=== PATIENT | male | born 1970 | race Caucasian/White ===

== ENCOUNTER 2016-12-29 11:24 | Emergency (ER) | payer SELFPAY ==
[2016-12-29] MEDS ORDERED: KETOROLAC TROMETHAMINE INJ/PF 30 MG/1 ML SDV IV ONE (12:11)
[2016-12-29] MEDS ORDERED: NORMAL SALINE 1000 ML 1,000 ML IV ONE (12:11)
[2016-12-29] MEDS ORDERED: ONDANSETRON HCL INJ/PF 4 MG/2 ML SDV IV ONE (12:11)
--- NOTE | 2016-12-29 12:14 | ER Document Report ---
ED Medical Screen (RME) - General Chief Complaint: Nausea/Vomiting Stated Complaint: VOMITING Time Seen by Provider: 12/29/16 12:10 Mode of Arrival: Ambulatory Information source: Patient - pt with onset of abd pain earlier this week -- che been having N/V/D in the past feew days -- laura BERUMEN and was sent here for further evaluation TRAVEL OUTSIDE OF THE [place] IN LAST 30 DAYS: No - Related Data Allergies/Adverse Reactions: almond Allergy (Verified 12/29/16 12:02) cashew nut Allergy (Verified 12/29/16 12:02) Home Medications: Current Home Medications No Home Medications 12/29/16 [History] Past Medical History - Social History Chew tobacco use (# tins/day): No Frequency of alcohol use: Heavy Drug Abuse: None Renal/ Medical History: Denies: Hx Peritoneal Dialysis - Immunizations Hx Diphtheria, Pertussis, Tetanus Vaccination: No Physical Exam - Vital signs Vitals: Temp Pulse Resp BP Pulse Ox 97.9 F 126 H 20 112/78 100 12/29/16 11:42 12/29/16 11:42 12/29/16 11:42 12/29/16 11:42 12/29/16 11:42 Course - Vital Signs Vital signs: Temp Pulse Resp BP Pulse Ox 97.9 F 126 H 20 112/78 100 12/29/16 11:42 12/29/16 11:42 12/29/16 11:42 12/29/16 11:42 12/29/16 11:42
[2016-12-29 12:35] LABS: ABSOLUTE LYMPHOCYTES (AUTO) 1.2 10^3/uL (0.5-4.7); ABSOLUTE MONOCYTES (AUTO) 0.8 10^3/uL (0.1-1.4); ABSOLUTE NEUT (AUTO) 8.4 10^3/uL (1.7-8.2); BASOPHILS % (AUTO) 0.4 % (0-2); EOSINOPHILS % (AUTO) 0.3 % (0-6); HEMATOCRIT 52.3 % (37.9-51.0); HEMOGLOBIN 18.6 g/dL (13.5-17.0); HGB HCT DIFFERENCE 3.5; LYMPHOCYTES % (AUTO) 11.4 % (13-45); MEAN CORPUSCULAR HEMOGLOBIN 32.2 pg (27.0-33.4); MEAN CORPUSCULAR HGB CONC 35.5 g/dL (32.0-36.0); MEAN CORPUSCULAR VOLUME 91 fl (80-97); MONOCYTES % (AUTO) 7.9 % (3-13); RED BLOOD COUNT 5.76 10^6/uL (4.35-5.55); RED CELL DISTRIBUTION WIDTH 12.5 % (11.5-14.0); WHITE BLOOD COUNT 10.5 10^3/uL (4.0-10.5)
[2016-12-29 12:40] LABS: APPEARANCE,URINE CLEAR; BILIRUBIN,URINE NEGATIVE (NEGATIVE); GLUCOSE, URINE NEGATIVE (NEGATIVE); KETONES,URINE NEGATIVE (NEGATIVE); LEUKOCYTE ESTERASE,URINE NEGATIVE (NEGATIVE); NITRITE,URINE NEGATIVE (NEGATIVE); PROTEIN,URINE 100 mg/dL (NEGATIVE); URINE SPECIFIC GRAVITY 1.034; UROBILINOGEN,URINE NEGATIVE mg/dL (<2.0)
[2016-12-29 13:07] LABS: ALBUMIN 5.2 g/dL (3.5-5.0); ANION GAP 19 (5-19); CARBON DIOXIDE 26 mmol/L (22-30); CHLORIDE 93 mmol/L (98-107); CREATININE RESULT 0.81 mg/dL (0.52-1.25); GLUCOSE 118 mg/dL (75-110); POTASSIUM 3.8 mmol/L (3.6-5.0); SODIUM 138.2 mmol/L (137-145); TOTAL PROTEIN 8.5 g/dL (6.3-8.2)
[2016-12-29 13:08] LABS: ALANINE AMINOTRANSFERASE 40 U/L (21-72); ALKALINE PHOSPHATASE 59 U/L (38-126); ASPARTATE AMINO TRANSFERASE 46 U/L (17-59); BILIRUBIN,DIRECT 0.4 mg/dL (0.0-0.4); BILIRUBIN,TOTAL 0.4 mg/dL (0.2-1.3); BLOOD UREA NITROGEN 29 mg/dL (7-20); CALCIUM 10.4 mg/dL (8.4-10.2); LIPASE 37.4 U/L (23-300)
--- NOTE | 2016-12-29 13:24 | RADIOLOGY REPORT (SQ) ---
EXAM DESCRIPTION: ACUTE ABDOMEN SERIES COMPLETED DATE/TIME: 12/29/2016 12:50 pm REASON FOR STUDY: abd pain COMPARISON: None. NUMBER OF VIEWS: Three views. TECHNIQUE: Frontal chest, supine abdomen and upright/decubitus abdomen radiographic images acquired. LIMITATIONS: None. FINDINGS: CHEST: Lungs clear of infiltrates. FREE AIR: None. No abnormal gas collections. BOWEL GAS PATTERN: Nonobstructive pattern. No dilated loops or air fluid levels. CALCIFICATIONS: No suspicious calcifications. HARDWARE: None in the abdomen. SOFT TISSUES: No gross mass or suggestion of organomegaly. BONES: No acute fracture. No worrisome bone lesions. OTHER: No other significant finding. IMPRESSION: NO RADIOGRAPHIC EVIDENCE FOR ACUTE ABDOMINAL DISEASE. TECHNICAL DOCUMENTATION: JOB ID: [id number] [employer]- All Rights Reserved
--- NOTE | 2016-12-29 14:35 | ER Document Report ---
ED General - General Chief Complaint: Nausea/Vomiting Stated Complaint: VOMITING Time Seen by Provider: 12/29/16 12:10 Mode of Arrival: Ambulatory Information source: Patient Notes: 46-year-old male presents with complaints of nausea vomiting diarrhea over the past 3 days. Patient denies any fevers or chills denies eating anything out of the ordinary, he admits to multiple episodes of vomiting today. He notes initially symptoms seem to be getting better but worsened over the last day Patient admits to generalized abdominal cramping no specific point tenderness TRAVEL OUTSIDE OF THE [place] IN LAST 30 DAYS: No - HPI Onset: Last week Onset/Duration: Sudden Quality of pain: Cramping Severity: Mild Pain Level: 1 Associated symptoms: Diarrhea, Nausea, Vomiting Exacerbated by: Denies Relieved by: Denies Similar symptoms previously: No Recently seen / treated by doctor: No - Related Data Allergies/Adverse Reactions: almond Allergy (Verified 12/29/16 12:02) cashew nut Allergy (Verified 12/29/16 12:02) Past Medical History - General Information source: Patient - pt with onset of abd pain earlier this week -- che been having N/V/D in the past feew days -- laura BERUMEN and was sent here for further evaluation - Social History Smoking Status: Current Every Day Smoker Cigarette use (# per day): Yes Chew tobacco use (# tins/day): No Smoking Education Provided: No Frequency of alcohol use: Heavy Drug Abuse: None Family History: Reviewed & Not Pertinent Patient has suicidal ideation: No Patient has homicidal ideation: No Renal/ Medical History: Denies: Hx Peritoneal Dialysis - Immunizations Hx Diphtheria, Pertussis, Tetanus Vaccination: No Review of Systems - Review of Systems Notes: REVIEW OF SYSTEMS: CONSTITUTIONAL : Denies fever, chills, or sweats. Denies recent illness. EENT: Denies eye, ear, throat, or mouth pain or symptoms. Denies nasal or sinus congestion or discharge. Denies throat, tongue, or mouth swelling or difficulty swallowing. CARDIOVASCULAR: Denies chest pain. Denies palpitations or racing or irregular heart beat. Denies ankle edema. RESPIRATORY: Denies cough, cold, or chest congestion. Denies shortness of breath, difficulty breathing, or wheezing. GASTROINTESTINAL: admits to nausea vomiting diarrhea GENITOURINARY: Denies difficulty urinating, painful urination, burning, frequency, blood in urine, or discharge. MUSCULOSKELETAL: Denies back or neck pain or stiffness. Denies joint pain or swelling. SKIN: Denies rash, lesions or sores. HEMATOLOGIC : Denies easy bruising or bleeding. LYMPHATIC: Denies swollen, enlarged glands. NEUROLOGICAL: Denies confusion or altered mental status. Denies passing out or loss of consciousness. Denies dizziness or lightheadedness. Denies headache. Denies weakness or paralysis or loss of use of either side. Denies problems with gait or speech. Denies sensory loss, numbness, or tingling. Denies seizures. PSYCHIATRIC: Denies anxiety or stress. Denies depression, suicidal ideation, or homicidal ideation. ALL OTHER SYSTEMS REVIEWED AND NEGATIVE. Dictation was performed using [employer] voice recognition software PHYSICAL EXAMINATION: GENERAL: Well-appearing, well-nourished and in no acute distress. HEAD: Atraumatic, normocephalic. EYES: Pupils equal round and reactive to light, extraocular movements intact, sclera anicteric, conjunctiva are normal. ENT: Nares patent, oropharynx clear without exudates. Moist mucous membranes. NECK: Normal range of motion, supple without lymphadenopathy LUNGS: Breath sounds clear to auscultation bilaterally and equal. No wheezes rales or rhonchi. HEART: Tachycardic ABDOMEN: Soft, nontender, nondistended abdomen. No guarding, no rebound. No masses appreciated. Musculoskeletal: Normal range of motion, no pitting or edema. No cyanosis. NEUROLOGICAL: Cranial nerves grossly intact. Normal speech, normal gait. Normal sensory, motor exams PSYCH: Normal mood, normal affect. SKIN: Warm, Dry, normal turgor, no rashes or lesions noted. Physical Exam - Vital signs Vitals: Temp Pulse Resp BP Pulse Ox 97.9 F 126 H 20 112/78 100 12/29/16 11:42 12/29/16 11:42 12/29/16 11:42 12/29/16 11:42 12/29/16 11:42 Course - Re-evaluation Re-evalutation: 12/29/16 14:35 pt noted to be tachycardic on arrival overall he looks quite well is in no distress at this time. Patient will be given IV fluids lab work is pending at this 12/29/16 15:14 Patient notes significant improvement of symptoms, lab work noted no significant abnormality except for elevated hemoglobin which would be consistent with his smoking. Smoking cessation instructions provided to the patient, I believe he has a viral syndrome given that lab work is normal otherwise. He will be discharged home at this time with close return precautions After performing a Medical Screening Examination, I estimate there is LOW risk for ACUTE APPENDICITIS, BOWEL OBSTRUCTION, ACUTE CHOLECYSTITIS, PERFORATED DIVERTICULITIS, INCARCERATED HERNIA, PANCREATITIS, or PERFORATED ULCER, thus I consider the discharge disposition reasonable. Also, there is no evidence or peritonitis, sepsis, or toxicity. I have reevaluated this patient multiple times and no significant life threatening changes are noted. The patient and I have discussed the diagnosis and risks, and we agree with discharging home with close follow-up with the understanding that symptoms and presentations can change. We also discussed returning to the Emergency Department immediately if new or worsening symptoms occur. We have discussed the symptoms which are most concerning (e.g., bloody stool, fever, changing or worsening pain, intractable vomiting - standard verbal up date) that necessitate immediate return. - Vital Signs Vital signs: Temp Pulse Resp BP Pulse Ox 97.9 F 126 H 20 112/78 100 12/29/16 11:42 12/29/16 11:42 12/29/16 11:42 12/29/16 11:42 12/29/16 11:42 - Laboratory Result Diagrams: 12/29/16 12:26 12/29/16 12:26 Laboratory results interpreted by me: 12/29/16 12/29/16 12/29/16 12:15 12:26 12:26 RBC 5.76 H Hgb 18.6 H Hct 52.3 H Seg Neutrophils % 80.0 H Lymphocytes % 11.4 L Absolute Neutrophils 8.4 H Chloride 93 L BUN 29 H Glucose 118 H Calcium 10.4 H Total Protein 8.5 H Albumin 5.2 H Urine Protein 100 H Discharge - Discharge Clinical Impression: Tachycardia, Nausea vomiting and diarrhea Abdominal pain Qualifiers: Abdominal location: generalized Qualified Code(s): R10.84 - Generalized abdominal pain Condition: Stable Disposition: HOME, SELF-CARE Instructions: Abdominal Pain ([facility]), Vomiting ([facility]), Diarrhea, Nonspecific ([facility]) Additional Instructions: Follow up with your physician tomorrow for further care or return to the ED IMMEDIATELY if symptoms worsen or new concerns occur. If you cannot afford to follow up with your primary care physician a list of low cost clinics have been provided at the end of your discharge papers as well. Prescriptions: Dicyclomine HCl [Bentyl 20 mg Tablet] 20 mg PO QID #40 tablet Metoclopramide HCl [Reglan 10 mg Tablet] 1 - 2 tab PO Q6 #25 tablet
[2016-12-29 15:34] VITALS: BP 119/75
== END 2016-12-29 15:34 | disposition home or self-care (01) ==
LOC: ER 11:24
DX: R11.2 Nausea with vomiting, unspecified (principal); R19.7 Diarrhea, unspecified; R00.0 Tachycardia, unspecified; R10.84 Generalized abdominal pain; F17.210 Nicotine dependence, cigarettes, uncomplicated; Z91.018 Allergy to other foods
CPT/HCPCS: 99284; 96361; 96374; 96375; 36415; 83690; 85025; 80053; 81001; 74022; J1885; J2405; J7030

== ENCOUNTER → 2018-11-27 | Outpatient (CLI) | payer BC ==
[2018-11-27 11:55] LABS: ABSOLUTE BASOPHILS # (AUTO) 0.1 10^3/uL (0.0-0.2); ABSOLUTE EOSINOPHILS # (AUTO) 0.6 10^3/uL (0.0-0.6); ABSOLUTE LYMPHOCYTES (AUTO) 2.6 10^3/uL (0.5-4.7); ABSOLUTE MONOCYTES (AUTO) 1.1 10^3/uL (0.1-1.4); ABSOLUTE NEUT (AUTO) 5.9 10^3/uL (1.7-8.2); BASOPHILS % (AUTO) 1.3 % (0-2); EOSINOPHILS % (AUTO) 5.6 % (0-6); HEMATOCRIT 41.3 % (37.9-51.0); HEMOGLOBIN 14.4 g/dL (13.5-17.0); LYMPHOCYTES % (AUTO) 25.3 % (13-45); MEAN CORPUSCULAR HEMOGLOBIN 31.2 pg (27.0-33.4); MEAN CORPUSCULAR HGB CONC 34.8 g/dL (32.0-36.0); MEAN CORPUSCULAR VOLUME 90 fl (80-97); MONOCYTES % (AUTO) 10.6 % (3-13); PLATELET COUNT 484 10^3/uL (150-450); RED BLOOD COUNT 4.61 10^6/uL (4.35-5.55); RED CELL DISTRIBUTION WIDTH 12.7 % (11.5-14.0); SEGMENTED NEUTROPHILS % (AUTO) 57.2 % (42-78); TOTAL CELLS COUNTED % (AUTO) 100 %; WHITE BLOOD COUNT 10.3 10^3/uL (4.0-10.5)
[2018-11-27 12:13] LABS: ALBUMIN 4.6 g/dL (3.5-5.0); ALKALINE PHOSPHATASE 132 U/L (38-126); ANION GAP 11 (5-19); ASPARTATE AMINO TRANSFERASE 35 U/L (17-59); BILIRUBIN,DIRECT 0.2 mg/dL (0.0-0.4); BILIRUBIN,TOTAL 0.3 mg/dL (0.2-1.3); BLOOD UREA NITROGEN 16 mg/dL (7-20); CALCIUM 10.2 mg/dL (8.4-10.2); CARBON DIOXIDE 30 mmol/L (22-30); CHLORIDE 96 mmol/L (98-107); GLUCOSE 90 mg/dL (75-110); TOTAL PROTEIN 7.4 g/dL (6.3-8.2)
[2018-11-27 12:40] LABS: CARCINOEMBRYONIC ANTIGEN 58.5 ng/mL (<3.0)
== END ==
LOC: OD 11:19
PROVIDERS: ATTEND Surgery
DX: C20 Malignant neoplasm of rectum (principal)
CPT/HCPCS: 36415; 80053; 82378; 85025

== ENCOUNTER → 2018-11-28 | Outpatient (CLI) | payer BC ==
--- NOTE | 2018-11-28 15:27 | RADIOLOGY REPORT (SQ) ---
EXAM DESCRIPTION: CHEST PA/LATERAL COMPLETED DATE/TIME: 11/28/2018 3:04 pm REASON FOR STUDY: MALIGNANT NEOPLASM OF RECTUM COMPARISON: None. EXAM PARAMETERS: NUMBER OF VIEWS: two views TECHNIQUE: Digital Frontal and Lateral radiographic views of the chest acquired. RADIATION DOSE: NA LIMITATIONS: none FINDINGS: LUNGS AND PLEURA: Multiple pulmonary nodules in the lower lobes. MEDIASTINUM AND HILAR STRUCTURES: No masses or contour abnormalities. HEART AND VASCULAR STRUCTURES: Heart normal size. No evidence for failure. BONES: No acute findings. HARDWARE: None in the chest. OTHER: No other significant finding. IMPRESSION: Multiple lower lobe pulmonary nodules likely metastases TECHNICAL DOCUMENTATION: JOB ID: [id number] [employer]- All Rights Reserved Reading location - IP/workstation name: [email or web address]
== END ==
LOC: OD 14:56
PROVIDERS: ATTEND Physician Assistant Surgical
DX: C20 Malignant neoplasm of rectum (principal); R91.8 Other nonspecific abnormal finding of lung field
CPT/HCPCS: 71046

== ENCOUNTER → 2018-11-29 | Outpatient (CLI) | payer BC ==
--- NOTE | 2018-11-29 16:48 | RADIOLOGY REPORT (SQ) ---
EXAM DESCRIPTION: CT ABD/PELVIS WITH IV ORAL COMPLETED DATE/TIME: 11/29/2018 3:17 pm REASON FOR STUDY: C20 MALIGNANT NEOPLASM OF RECTUM C20 MALIGNANT NEOPLASM OF RECTUM COMPARISON: None. TECHNIQUE: CT scan of the abdomen and pelvis performed using helical scanning technique with dynamic intravenous contrast injection. No oral contrast. Images reviewed with lung, soft tissue, and bone windows. Reconstructed coronal and sagittal MPR images reviewed. Delayed images for evaluation of the urinary system also acquired. All images stored on PACS. All CT scanners at this facility use dose modulation, iterative reconstruction, and/or weight based d osing when appropriate to reduce radiation dose to as low as reasonably achievable (ALARA). [facility]: Dose Right [facility]: CareDose [facility]: Dose Right [facility]: Teradose 4D [facility]: [employer] CONTRAST TYPE AND DOSE: contrast/concentration: Isovue 350.00 mg/ml; Total Contrast Delivered: 77.0 ml; Total Saline Delivered: 67.0 ml RENAL FUNCTION: None required. The patient is less than 50 years old. RADIATION DOSE: CT Rad equipment meets quality standard of care and radiation dose reduction techniq ues were employed. CTDIvol: 3.2 - 3.7 mGy. DLP: 347 mGy-cm.. LIMITATIONS: None. FINDINGS: LOWER CHEST: Multiple pulmonary nodules. LIVER: Normal size. Multiple ill-defined hepatic masses, the largest in the posterior right lobe willy suring 4.5 cm and the largest in the lateral left lobe measuring 3.5 cm. No dilated ducts. SPLEEN: Normal size. No focal lesions. PANCREAS: No masses. No significant calcifications. No adjacent inflammation or peripancreatic fluid collections. Pancreatic duct not dilated. GALLBLADDER: No identified stones by CT criteria. No inflammatory changes to suggest cholecystitis. ADRENAL GLANDS: No significant masses or asymmetry. RIGHT KIDNEY AND URETER: No solid masses. No significant calcifications. No hydronephrosis or hyd roureter. LEFT KIDNEY AND URETER: No solid masses. No significant calcifications. No hydronephrosis or hydr oureter. AORTA AND VESSELS: No aneurysm. No dissection. Renal arteries, SMA, celiac without stenosis. RETROPERITONEUM: No retroperitoneal adenopathy, hemorrhage or masses. BOWEL AND PERITONEAL CAVITY: No masses or inflammatory changes. No free fluid or peritoneal masses. APPENDIX: Normal. PELVIS: No mass. No free fluid. Normal bladder. ABDOMINAL WALL: No masses. No hernias. BONES: No significant or acute findings. OTHER: No other significant finding. IMPRESSION: 1. MULTIPLE PULMONARY NODULES CONSISTENT WITH METASTATIC INVOLVEMENT. 2. MULTIPLE ILL-DEFINED HEPATIC MASSES CONSISTENT WITH HEPATIC METASTASES. 3. NO OTHER SIGNIFICANT OR ACUTE FINDING IN THE ABDOMEN OR PELVIS ON CT SCAN WITH IV CONTRAST. TECHNICAL DOCUMENTATION: JOB ID: [id number] Quality ID # [id number]: Final reports with documentation of one or more dose reduction techniques (e.g., Au tomated exposure control, adjustment of the mA and/or kV according to patient size, use of iterative reconstruction technique) 2010 [employer] All Rights Reserved Reading location - IP/workstation name: [email or web address]
== END ==
LOC: RAD 15:00
PROVIDERS: ATTEND Surgery
DX: C20 Malignant neoplasm of rectum (principal)
CPT/HCPCS: 74177

== ENCOUNTER 2018-12-18 08:39 | Day surgery (SDC) | payer BC ==
[~2018-12-18 08:39] MED LIST: BUPIVACAINE HCL 0.25% /EPINEPHRINE INJ/PF 30 ML SDV ONE; CEFAZOLIN 1 GM/D5W RTU 1 GM/50 ML RTUPB IV ONE
[2018-12-18] MEDS ORDERED: ALBUTEROL SULFATE 0.083% NEB 2.5 MG/3 ML AMPUL NEB ONE (09:52)
[2018-12-18] MEDS ORDERED: KETAMINE HCL INJ 500 MG/10 ML VIAL ONE (10:29)
[2018-12-18] MEDS ORDERED: FENTANYL CITRATE INJ/PF 100 MCG/2 ML AMPUL ONE (10:29)
[2018-12-18] MEDS ORDERED: PROPOFOL INJ 200 MG/20 ML VIAL IV ONE (10:30)
[2018-12-18] MEDS ORDERED: MIDAZOLAM 2 MG/2 ML INJ ONE ×2 (10:30→14:43)
[2018-12-18 11:00] LABS: HEMATOCRIT 39.5 % (37.9-51.0); HEMOGLOBIN 13.3 g/dL (13.5-17.0); MEAN CORPUSCULAR HGB CONC 33.6 g/dL (32.0-36.0); MEAN CORPUSCULAR VOLUME 89 fl (80-97); PLATELET COUNT 395 10^3/uL (150-450); RED BLOOD COUNT 4.42 10^6/uL (4.35-5.55); RED CELL DISTRIBUTION WIDTH 12.5 % (11.5-14.0); WHITE BLOOD COUNT 7.7 10^3/uL (4.0-10.5)
--- NOTE | 2018-12-18 11:56 | Discharge Summary ---
Discharge Summary (SDC) - Discharge Final Diagnosis: rectal cancer Date of Surgery: 12/18/18 Discharge Date: 12/18/18 Condition: Good Treatment or Instructions: keep port site dry, ok to shower, pat incision dry. leave steristrips in place. Referrals: LILIANA COOLEY MD [Primary Care Provider] - Discharge Diet: As Tolerated Report the Following to Your Physician Immediately: Shortness of Breath - pt needs a f/u with me in 7-10 days., Increase in Pain
[2018-12-18] MEDS ORDERED: OXYCODONE-ACETAMINOPHEN 5-325 MG TABLET PO PRN (12:00)
--- NOTE | 2018-12-18 12:01 | Operative Report ---
Nonrecallable Operative Report DATE OF SURGERY: 12/18/18 PREOPERATIVE DIAGNOSIS: rectal cancer POSTOPERATIVE DIAGNOSIS: rectal cancer OPERATION: portacath placement left chest SURGEON: AMA SILVA ANESTHESIA: Moderate Sedation COMPLICATIONS: none ESTIMATED BLOOD LOSS: 5cc INTRAOPERATIVE FINDINGS: see procedure note PROCEDURE: Patient was brought to the operating room awake alert stable condition placed the operative table supine position and given IV sedation for the procedure. After appropriate timeout and site verification the area of underneath the left clavicle was anesthetized with 1% lidocaine with epinephrine. Using a 16-gauge needle the left subclavian vein was accessed. A J-wire was placed through the needle confirmed with fluoroscopy in the superior vena cava and the needle was removed. Over the needle a tear-away introducer dilator was placed under fluoroscopic visualization. The dilator was then removed. The Port-A-Cath catheter was then placed into the tear-away introducer and positioned in the superior vena cava using fluoroscopy. After the catheter was in satisfactory position attention was turned to the left chest wall. Skin over the left chest wall at the fourth intercostal space was anesthetized with 1% lidocaine with epinephrine. A transverse incision was made with a 15 blade dissection was carried down through subcutaneous tissue with Bovie cautery. A subcutaneous pocket was then fashioned with Bovie cautery inferior to the incision. Using the tunnel maker supplied with the kit it was attached to the catheter at the subclavian stick site and tunneled underneath the skin to the port site incision. It was then attached to the power port. It was then placed underneath the skin in the subcutaneous pocket. It then flushed and withdrew easily and then was heparinized with a heparinized saline solution. Subcutaneous tissue was then reapproximated with interrupted 3-0 Vicryl suture. Skin was then closed with intracuticular 4-0 Monocryl. Steri-Strips applied to complete the procedure. Estimated blood loss was less than 5 cc sponge and needle counts were correct x2 the patient was transferred recovery in stable condition. No complications encountered.
--- NOTE | 2018-12-18 12:27 | RADIOLOGY REPORT (SQ) ---
EXAM DESCRIPTION: CHEST SINGLE VIEW COMPLETED DATE/TIME: 12/18/2018 12:15 pm REASON FOR STUDY: portacath placement. COMPARISON: Chest films 11/28/2018, 12/29/2016 EXAM PARAMETERS: NUMBER OF VIEWS: One view. TECHNIQUE: Single frontal radiographic view of the chest acquired. RADIATION DOSE: NA LIMITATIONS: None. FINDINGS: LUNGS AND PLEURA: Multiple small pulmonary nodules are present bilaterally unchanged from 11/28/2018. No acute infiltrates. No pleural effusion or pneumothorax. MEDIASTINUM AND HILAR STRUCTURES: No masses. Contour normal. HEART AND VASCULAR STRUCTURES: Heart normal in size. Normal vasculature. BONES: No acute findings. HARDWARE: Left-sided permanent central line tip superior vena cava. No pneumothorax OTHER: No other significant finding. IMPRESSION: Left-sided permanent central line tip superior vena cava. No pneumothorax. No acute infiltrates Multiple small pulmonary nodules from metastatic disease TECHNICAL DOCUMENTATION: JOB ID: [id number] [employer]- All Rights Reserved Reading location - IP/workstation name: [email or web address]
[2018-12-18 13:25] VITALS: BP 107/62
[2018-12-18] MEDS ORDERED: GLYCOPYRROLATE 1 MG/5 ML VIAL ONE (14:40)
--- NOTE | 2018-12-18 15:53 | RADIOLOGY REPORT (SQ) ---
EXAM DESCRIPTION: FLUORO/CV PLACEMENT COMPLETED DATE/TIME: 12/18/2018 2:41 pm REASON FOR STUDY: PORTACATH PLCMT LEFT SIDE ASST W/ FLUORO IN OR C20 MALIGNANT NEOPLASM OF RECTUM R 73.9 HYPERGLYCEMIA, UNSPECIFIED COMPARISON: None. FLUOROSCOPY TIME: 1.4 minutes Spot images saved to PACS. TECHNIQUE: Intra-operative images acquired during surgical procedure to evaluate progress. NUMBER OF IMAGES: 3 LIMITATIONS: None. FINDINGS: Fluoroscopy was provided for intraoperative procedure. Please refer to the operative repo rt for further discussion. IMPRESSION: IMAGE(S) OBTAINED DURING PROCEDURE. COMMENT: Quality ID [id number]: Final reports for procedures using fluoroscopy that document radiation exp osure indices, or exposure time and number of fluorographic images (if radiation exposure indices are not available) Please consult full operative report of the attending physician for description of the procedure. TECHNICAL DOCUMENTATION: JOB ID: [id number] [employer]- All Rights Reserved Reading location - IP/workstation name: [email or web address]
== END 2018-12-18 13:26 | disposition home or self-care (01) ==
LOC: OROUT 08:39
PROVIDERS: ATTEND Surgery
DX: C20 Malignant neoplasm of rectum (principal); R73.9 Hyperglycemia, unspecified; K62.5 Hemorrhage of anus and rectum; F17.210 Nicotine dependence, cigarettes, uncomplicated
CPT/HCPCS: 36561; 36415; 85027; 71045; 77001; C1788; J2250; J3490 ×3; J0690; J2704; J1642; J3010

== ENCOUNTER → 2019-03-20 | Outpatient (CLI) | payer BC ==
--- NOTE | 2019-03-20 12:44 | RADIOLOGY REPORT (SQ) ---
EXAM DESCRIPTION: CT CHEST WITH; CT ABD/PELVIS WITH IV ORAL COMPLETED DATE/TIME: 03/20/2019 10:36 am; 03/20/2019 10:37 am REASON FOR STUDY: MALIGNANT NEOPLASM OF RECTUM C20 MALIGNANT NEOPLASM OF RECTUM COMPARISON: CT abdomen pelvis 11/29/2018 CONTRAST TYPE AND DOSE: contrast/concentration: Isovue 350.00 mg/ml; Total Contrast Delivered: 72.0 ml; Total Saline Delivered: 66.0 ml RENAL FUNCTION: Creatinine 0.8 TECHNIQUE: CT scan of the chest performed using helical scanning technique with dynamic intravenous contrast injection. Images reviewed with lung, soft tissue and bone windows. Reconstructed coronal a nd sagittal MPR images reviewed. All images stored on PACS. CT scan of the abdomen and pelvis performed with intravenous and with oral contrastusing helical scan abbe technique with dynamic intravenous contrast injection. Images reviewed with lung, soft tissue a nd bone windows. Reconstructed coronal and sagittal MPR images reviewed. Delayed images for evaluat ion of the urinary system also acquired and evaluated. All images stored on PACS. All CT scanners at this facility use dose modulation, iterative reconstruction, and/or weight based d osing when appropriate to reduce radiation dose to as low as reasonably achievable (ALARA). [facility]: Dose Right [facility]: CareDose [facility]: Dose Right [facility]: Teradose 4D [facility]: [employer] RADIATION DOSE: CT Rad equipment meets quality standard of care and radiation dose reduction techniq ues were employed. CTDIvol: 4.5 - 4.7 mGy. DLP: 724 mGy-cm. . LIMITATIONS: None. FINDINGS: CHEST: LUNGS AND PLEURA: Multiple pulmonary nodules seen on 11/29/2018 has decreased in size. Index lesions are as follows: Cavitary 11 mm lingular nodule axial image 108/158 (was [address] abdomen pelvis imaging t hrough the lung bases) 6 mm nodule medial left lung base axial image 112/158 (was [address] abdomen pelvis) 7 mm nodule left posterior costophrenic sulcus axial image 128/158 (was [address] abdomen pelvis) There is 11 mm nodule at the confluence of the major and minor fissures on axial image 72/158. This was outside the field of view prior exam. No acute infiltrates. No pleural effusion. No pneumothorax. HILAR AND MEDIASTINAL STRUCTURES: No identified masses or abnormal nodes. HEART AND VASCULAR STRUCTURES: No aneurysm or dissection. No central pulmonary emboli. No pericardi al effusion. HARDWARE: Right-sided permanent central line tip superior vena cava THYROID AND OTHER SOFT TISSUES: No masses. No adenopathy. BONES: No significant finding. OTHER: No other significant finding. ABDOMEN AND PELVIS: LIVER: Decrease in size and number of malignant liver lesions compared to 11/29/2018. Index lesions a re as follows: Left lobe sub- diaphragmatic mass 3.4 x 3.3 cm (was 5 x 4.5 cm on 11/29/2018). Right lobe inferiorly 3.6 x 3.3 cm (was 5.8 x 5.7 cm on 11/29/2018). SPLEEN: Normal size. No focal lesions. PANCREAS: No masses. No significant calcifications. No adjacent inflammation or peripancreatic fluid collections. Pancreatic duct not dilated. GALLBLADDER: No identified stones by CT criteria. No inflammatory changes to suggest cholecystitis. ADRENAL GLANDS: No significant masses or asymmetry. RIGHT KIDNEY AND URETER: No solid masses. No significant calcification. No hydronephrosis or hydroure ter. LEFT KIDNEY AND URETER: No solid masses. No significant calcification. No hydronephrosis or hydrouret er. AORTA AND VESSELS: No aneurysm. No dissection. Renal arteries, SMA, celiac without stenosis. RETROPERITONEUM: No retroperitoneal adenopathy, hemorrhage or masses. BOWEL AND PERITONEAL CAVITY: Patient drank oral contrast No masses or inflammatory changes. No free fluid or peritoneal masses. APPENDIX: Normal. ABDOMINAL WALL: No masses. No hernias. PELVIS: No mass or free fluid. Normal bladder. BONES: No significant or acute findings. OTHER: No other significant finding. IMPRESSION: Decrease in size of lung metastatic lesions compared to 11/29/2018 Decrease in size of liver lesions compared 11/29/2018 TECHNICAL DOCUMENTATION: JOB ID: [id number] Quality ID # [id number]: Final reports with documentation of one or more dose reduction techniques (e.g., Au tomated exposure control, adjustment of the mA and/or kV according to patient size, use of iterative reconstruction technique) 2010 [employer]- All Rights Reserved Reading location - IP/workstation name: [email or web address]
== END ==
LOC: RAD 09:59
PROVIDERS: ATTEND Physician Assistant Medical
DX: C20 Malignant neoplasm of rectum (principal)
CPT/HCPCS: 71260; 74177

== ENCOUNTER → 2019-04-30 | Outpatient (CLI) | payer BC ==
--- NOTE | 2019-04-30 11:36 | RADIOLOGY REPORT (SQ) ---
EXAM DESCRIPTION: NOT FOR OR FLUORO TO 1 HR COMPLETED DATE/TIME: 04/30/2019 10:39 am REASON FOR STUDY: ENCOUNTER FOR ADJUSTMENT AND MANAGEMENT Z45.2 ENCOUNTER FOR ADJUSTMENT AND MANAGE MENT OF VAD COMPARISON: None. FLUOROSCOPY TIME: 10 seconds of fluoroscopy was used. 3 images saved to PACS. TECHNIQUE: Fluoroscopic guided injection of non-ionic contrast through an existing port a catheter. LIMITATIONS: None. PROCEDURE: The patient was brought into the fluoroscopic room and placed supine on the table. The ks tiejhonny's port access site was prepped and draped in a sterile fashion. The port was the accessed by th e radiological nurse. The catheter was then injected with 15 ml Omnipaque 300. A series of fluoroscop ic images demonstrate no extravasation from the port well. There is evidence of a fibrin sheath at th e end of the catheter restricting flow. The fibrin sheath covers approximately 5 cm of the distal cat heter. The catheter flushed without difficulty. Unable to aspirate. IMPRESSION: PATENT PORT A CATHETER WITH EVIDENCE OF A FLOW RESTRICTING FIBRIN SHEATH. Findings were discussed with Dr. Hernandez on 04/30/2019 at 1115 hours. COMMENT: Quality ID 145: Final reports for procedures using fluoroscopy that document radiation exp osure indices, or exposure time and number of fluorographic images (if radiation exposure indices are not available) TECHNICAL DOCUMENTATION: JOB ID: [id number] [employer]- All Rights Reserved Reading location - IP/workstation name: [email or web address] [id number]
== END ==
LOC: RAD 09:54
PROVIDERS: ATTEND Internal Medicine
DX: Z45.2 Encounter for adjustment and management of vascular access device (principal)
CPT/HCPCS: 76000; J1642

== ENCOUNTER 2019-05-03 06:25 | Day surgery (SDC) | payer BC ==
[~2019-05-03 06:25] MED LIST changes: -BUPIVACAINE HCL 0.25% /EPINEPHRINE INJ/PF 30 ML SDV ONE; -CEFAZOLIN 1 GM/D5W RTU 1 GM/50 ML RTUPB IV ONE; +CEFAZOLIN 1 GM/D5W RTU 1 GM/50 ML RTUPB IV PRN
[2019-05-03] MEDS ORDERED: CEFAZOLIN 1 GM/D5W RTU 1 GM/50 ML RTUPB IV ONE (07:47)
[2019-05-03 07:49] LABS: HEMATOCRIT 44.5 % (37.9-51.0); HEMOGLOBIN 15.3 g/dL (13.5-17.0); MEAN CORPUSCULAR HGB CONC 34.4 g/dL (32.0-36.0); MEAN CORPUSCULAR VOLUME 96 fl (80-97); PLATELET COUNT 247 10^3/uL (150-450); RED BLOOD COUNT 4.64 10^6/uL (4.35-5.55); WHITE BLOOD COUNT 9.1 10^3/uL (4.0-10.5)
[2019-05-03] MEDS ORDERED: LIDOCAINE 0.5% INJ-PF (5 MG/ML) 50 ML SDV ONE (07:55)
[2019-05-03] MEDS ORDERED: FENTANYL CITRATE INJ/PF 100 MCG/2 ML AMPUL ONE (08:19)
[2019-05-03] MEDS ORDERED: MIDAZOLAM 2 MG/2 ML INJ ONE ×2 (08:19→08:48)
--- NOTE | 2019-05-03 08:28 | RADIOLOGY REPORT (SQ) ---
EXAM DESCRIPTION: CHEST SINGLE VIEW COMPLETED DATE/TIME: 05/03/2019 7:27 am REASON FOR STUDY: pac insertion COMPARISON: 12/18/2018 EXAM PARAMETERS: NUMBER OF VIEWS: One view. TECHNIQUE: Single frontal radiographic view of the chest acquired. RADIATION DOSE: NA LIMITATIONS: None. FINDINGS: LUNGS AND PLEURA: The previously identified bilateral pulmonary nodules are not visualize d on the current examination. No acute pulmonary consolidation. No pneumothorax or pleural effusion . MEDIASTINUM AND HILAR STRUCTURES: No masses. Contour normal. HEART AND VASCULAR STRUCTURES: Heart normal in size. Normal vasculature. BONES: No acute findings. HARDWARE: Left Ykvuwg-C-Opai catheter, stable finding. OTHER: No other significant finding. IMPRESSION: 1. Interval resolution of the bilateral pulmonary nodules since the prior study dated . 2. No acute pulmonary consolidation. TECHNICAL DOCUMENTATION: JOB ID: [id number] [employer]- All Rights Reserved Reading location - IP/workstation name: [email or web address]
--- NOTE | 2019-05-03 09:54 | Operative Report ---
Nonrecallable Operative Report DATE OF SURGERY: 05/03/19 PREOPERATIVE DIAGNOSIS: rectal cancer POSTOPERATIVE DIAGNOSIS: Rectal cancer OPERATION: Venous access Port-A-Cath revision left chest SURGEON: AMA SILVA ANESTHESIA: Moderate Sedation COMPLICATIONS: None ESTIMATED BLOOD LOSS: 0 INTRAOPERATIVE FINDINGS: See note PROCEDURE: Patient was brought to the [facility] awake alert placed on the rating table in supine position the left chest was prepped and draped in usual sterile fashion. After appropriate timeout site verification the procedure commenced. The area over the old Port-A-Cath site was anesthetized with 1% lidocaine with epinephrine. A subclavian stick was then made after anesthetizing the skin u nder the left clavicle with 1% lidocaine with epinephrine. A subclavian stick was done with a micropuncture needle and then through that needle a wire was placed into the superior vena cava confirmed on fluoroscopy. The introducer was then placed over the wire and the wire was removed through the introducer catheter a J-wire was placed to allow for placement of the larger tear-away introducer. The larger tear-away introducer was then placed over the wire under direct vision into the supra vena cava the dilator was removed and the catheter was placed in through the tear-away introducer confirmed to lie in good position in the superior vena cava. At this point attention was then turned to the Port-A-Cath on the left chest a small incision was made over the port to catheter insertion site with a 15 blade and the area of the catheter insertion onto the port was dissected from the surrounding subcutaneous tissue the locking device was removed from the port and the catheter and locking device was removed. Then using the tunnel maker supplied with the kit that the new catheter at the subclavian stick site was tunneled from that site to the port site. It was then attached to the port which remained in place with the locking device. The port was then injected with contrast to confirm good placement and that was confirmed on fluoroscopy. Was then heparinized with a heparinized sa line solution. The subcutaneous tissue was then reapproximated with interrupted 3-0 Vicryl. And then the skin was reapproximated intracuticular 3-0 Biosyn. Steri-Strips completed the procedure estimated blood loss was negligible sponge needle counts were correct x2 patient was then transferred recovery in stable condition
--- NOTE | 2019-05-03 09:56 | Discharge Summary ---
Discharge Summary (SDC) - Discharge Final Diagnosis: Rectal cancer Date of Surgery: 05/03/19 Discharge Date: 05/03/19 Forms: ASU Anesthesia D/C Instruction, Discharge POC-Surgical Service Treatment or Instructions: Rest today - No driving, using any appliances, or machinery. Keep dressing clean and dry; may shower in 24 hours with site covered. If you have any excessive drainage or any pus-like drainage from incision, call the doctor. Return for your follow-up visit as scheduled with the doctor. If the doctor's office is closed, you can call the hospital switchboard at [phone] and they will contact your physician for you. Referrals: AMA SILVA MD [ACTIVE STAFF] - LILIANA COOLEY MD [Primary Care Provider] - Discharge Activity: Activity As Tolerated Home Care Assistance: None Needed Report the Following to Your Physician Immediately: Shortness of Breath, Fever over 101 Degrees
[2019-05-03 10:54] VITALS: BP 112/75
--- NOTE | 2019-05-03 18:05 | RADIOLOGY REPORT (SQ) ---
EXAM DESCRIPTION: PORTACATH INSERTION COMPLETED DATE/TIME: 05/03/2019 9:41 am REASON FOR STUDY: C20 RECTAL CA, PORT EXCHANGE C20 MALIGNANT NEOPLASM OF RECTUM COMPARISON: None. FLUOROSCOPY TIME: 3.1 minutes Spot and fluoroscopic images saved to PACS. TECHNIQUE: Intra-operative images acquired during surgical procedure to evaluate progress. NUMBER OF IMAGES: Spot and fluoroscopic LIMITATIONS: None. FINDINGS: Left-sided port tip overlies SVC. IMPRESSION: IMAGE(S) OBTAINED DURING PROCEDURE. COMMENT: Quality ID 145: Final reports for procedures using fluoroscopy that document radiation exp osure indices, or exposure time and number of fluorographic images (if radiation exposure indices are not available) Please consult full operative report of the attending physician for description of the procedure. TECHNICAL DOCUMENTATION: JOB ID: [id number] [employer]- All Rights Reserved Reading location - IP/workstation name: [email or web address]
== END 2019-05-03 10:54 | disposition home or self-care (01) ==
LOC: CCL 06:25
PROVIDERS: ATTEND Surgery
DX: C20 Malignant neoplasm of rectum (principal); R73.9 Hyperglycemia, unspecified; F17.210 Nicotine dependence, cigarettes, uncomplicated; K62.5 Hemorrhage of anus and rectum
CPT/HCPCS: 36415; 85027; 36561; 77001; 71045; C1752; C1788; Q9967; C1769; J2250; J0690; J3010; J3490; J1644; 76937

== ENCOUNTER → 2019-06-27 | Outpatient (CLI) | payer BC, OTHER ==
--- NOTE | 2019-06-27 13:13 | RADIOLOGY REPORT (SQ) ---
EXAM DESCRIPTION: CT CHEST WITH; CT ABD/PELVIS WITH IV ORAL COMPLETED DATE/TIME: 06/27/2019 9:23 am; 06/27/2019 9:30 am REASON FOR STUDY: MALIGNANT NEOPLASM OF RECTUM C20 MALIGNANT NEOPLASM OF RECTUM CONTRAST TYPE AND DOSE: contrast/concentration: Isovue 350.00 mg/ml; Total Contrast Delivered: 73.0 ml; Total Saline Delivered: 66.0 ml RENAL FUNCTION: None required. The patient is less than 50 years old. COMPARISON: 03/20/2019 RADIATION DOSE: CT Rad equipment meets quality standard of care and radiation dose reduction techniq ues were employed. CTDIvol: 4.5 - 4.6 mGy. DLP: 702 mGy-cm. mGy. TECHNIQUE: CT scan of the abdomen and pelvis performed with intravenous and oral contrast using lolis alex scanning technique with dynamic intravenous contrast injection. Images reviewed with lung, soft tissue and bone windows. Reconstructed coronal and sagittal MPR images reviewed. Delayed images for evaluation of the urinary system also acquired and evaluated. All images stored on PACS. All CT scanners at this facility use dose modulation, iterative reconstruction, and/or weight based d osing when appropriate to reduce radiation dose to as low as reasonably achievable (ALARA). [facility]: Dose Right [facility]: [facility]: Dose Right [facility]: Teradose 4D [facility]: [employer] FINDINGS: LIVER: There is lesion in the left lobe of the liver that measures 27.4 x 28.9 mm. On the prior study this measured 33.1 x 33.8 mm. A lesion in the right lobe of the liver measures 30 x 29 mm compared to 36.1 x 33.4 mm on the earlier study. There are some very small poorly defined lesions in right lobe that are less prominent. SPLEEN: Normal size. No focal lesions. PANCREAS: No masses. No significant calcifications. No adjacent inflammation or peripancreatic flui d collections. Pancreatic duct not dilated. GALLBLADDER: No identified stones by CT criteria. No inflammatory changes to suggest cholecystitis. ADRENAL GLANDS: No significant masses or asymmetry. RIGHT KIDNEY AND URETER: No solid masses. No significant calcifications. No hydronephrosis or hyd roureter. LEFT KIDNEY AND URETER: No solid masses. No significant calcifications. No hydronephrosis or hydr oureter. AORTA AND VESSELS: No aneurysm. No dissection. Renal arteries, SMA, celiac without stenosis. RETROPERITONEUM: No retroperitoneal adenopathy, hemorrhage or masses. LARGE AND SMALL BOWEL: No dilatation. No masses. No wall thickening. APPENDIX: Not identified. ABDOMINAL WALL: No hernia or masses. PERITONEAL CAVITY: No free air. No free fluid. No peritoneal implants or masses. PELVIS: No mass or free fluid. Normal bladder. BONES: No significant or acute findings. OTHER: No other significant finding. IMPRESSION: There is some improvement in metastatic disease to the liver as described. TECHNICAL DOCUMENTATION: JOB ID: [id number] Quality ID # 436: Final reports with documentation of one or more dose reduction techniques (e.g., Au tomated exposure control, adjustment of the mA and/or kV according to patient size, use of iterative reconstruction technique) 2010 [employer]- All Rights Reserved TECHNIQUE: CT scan of the chest performed using helical scanning technique with dynamic intravenous contrast injection. Images reviewed with lung, soft tissue and bone windows. Reconstructed coronal a nd sagittal MPR images reviewed. All images stored on PACS. All CT scanners at this facility use dose modulation, iterative reconstruction, and/or weight based d osing when appropriate to reduce radiation dose to as low as reasonably achievable (ALARA). [facility]: Dose Right [facility]: CareDose [facility]: Dose Right [facility]: Teradose 4D [facility]: [employer] RADIATION DOSE: CT Rad equipment meets quality standard of care and radiation dose reduction techniq ues were employed. CTDIvol: 4.5 - 4.6 mGy. DLP: 702 mGy-cm. . LIMITATIONS: None. FINDINGS: AXILLAE: No adenopathy. CHEST WALL: No masses. No subcutaneous air. LUNGS: Cavitary lesion in the lingula measures 6.3 mm compared to 11 mm on the prior study. The smal l lesion in the medial left lower lobe on image 96 that measures 4.1 mm compared to 6.5 mm on the ear lier study. 6.5 mm lesion in the left posterior costophrenic sulcus measures 7.2 mm on the earlier s tudy. There is a 10.7 mm lesion in the medial right lung on image 55 that it measured 10.8 mm on the earlier study. No new pulmonary nodules are present. No infiltrate. No pleural effusion. PLEURA: No pleural effusion. THYROID: No masses or significant asymmetry. HILAR AND MEDIASTINAL STRUCTURES: No identified masses or abnormal nodes. AORTA AND GREAT VESSELS: No aneurysm. No dissection. PULMONARY ARTERIES: No identified pulmonary emboli. Study not optimized for the pulmonary arteries. HEART: No pericardial effusion. HARDWARE AND LIFELINES: None. BONES: No significant finding. OTHER: No other significant finding. IMPRESSION: There is slight improvement in some lesions present in the left lung on the earlier stud y. A right lung lesion is stable. There are no new findings. Reading location - IP/workstation name: [email or web address]
== END ==
LOC: RAD 09:07
PROVIDERS: ATTEND Physician Assistant Medical
DX: C20 Malignant neoplasm of rectum (principal); C78.7 Secondary malignant neoplasm of liver and intrahepatic bile duct
CPT/HCPCS: 71260; 74177

== ENCOUNTER 2019-09-24 12:59 | Outpatient (CLI) | payer SELFPAY ==
[2019-09-24 13:32] VITALS: BP 115/88
[2019-09-24] MEDS ORDERED: NORMAL SALINE IV PRN (13:32)
[2019-09-24] MEDS ORDERED: BEVACIZUMAB IV PRN (13:32)
[2019-09-24] MEDS ORDERED: NORMAL SALINE 250 ML IV PRN (13:33)
== END 2019-09-24 14:30 | disposition home or self-care (01) ==
LOC: II 12:59 → 5TH 13:02 → II 14:30
PROVIDERS: ATTEND Internal Medicine Hematology & Oncology
DX: Z51.11 Encounter for antineoplastic chemotherapy (principal); C20 Malignant neoplasm of rectum
CPT/HCPCS: 96413; J7050; J9035; J1642

== ENCOUNTER → 2019-10-04 | Outpatient (CLI) | payer BC, OTHER ==
--- NOTE | 2019-10-04 10:04 | RADIOLOGY REPORT (SQ) ---
EXAM DESCRIPTION: CT ABD/PELVIS WITH IV ORAL IMAGES COMPLETED DATE/TIME: 10/04/2019 9:25 am REASON FOR STUDY: (C20)MALIGNANT NEOPLASM OF RECTUM C20 MALIGNANT NEOPLASM OF RECTUM COMPARISON: CT of the abdomen and pelvis with contrast from 06/27/2019 and 03/20/2019. TECHNIQUE: CT scan of the abdomen and pelvis performed using helical scanning technique with dynamic intravenous contrast injection. No oral contrast. Images reviewed with lung, soft tissue, and bone windows. Reconstructed coronal and sagittal MPR images reviewed. Delayed images for evaluation of the urinary system also acquired. All images stored on PACS. All CT scanners at this facility use dose modulation, iterative reconstruction, and/or weight based d osing when appropriate to reduce radiation dose to as low as reasonably achievable (ALARA). [facility]: Dose Right [facility]: CareDose [facility]: Dose Right [facility]: Teradose 4D [facility]: [employer] CONTRAST TYPE AND DOSE: 73 mL Omnipaque 350- low osmolar. RENAL FUNCTION: GFR > 60. RADIATION DOSE: CT Rad equipment meets quality standard of care and radiation dose reduction techniq ues were employed. CTDIvol: 4.5 - 4.5 mGy. DLP: 901 mGy-cm. LIMITATIONS: None. FINDINGS: LOWER CHEST: Refer to the separate report of the CT of the chest. LIVER: The morphology of the liver is noncirrhotic. The 2.7 x 2.2 cm hypodense lesion at the junctio n of segments 2 and 3 (image 21 of series 3) and the 2.9 x 2.5 cm hypodense lesion in segment 6 (imag e 34 of series 3) are unchanged in size. There are several other subcentimeter hypodense lesions in the hepatic dome (image 10 of series 3) and scattered throughout the right lobe (for reference refer to image 29 of series 3) that on average measure less than 10 mm in diameter and are unchanged in siz e and number. The portal veins are patent. SPLEEN: No splenomegaly or splenic mass. PANCREAS: No acute abnormality of the pancreas. GALLBLADDER: No abnormality that is apparent on CT. ADRENAL GLANDS: The mild nodular enlargement of the left adrenal gland is unchanged. RIGHT KIDNEY AND URETER: There is no solid mass, hydronephrosis, nephrolithiasis, hydroureter or uret erolithiasis. LEFT KIDNEY AND URETER: There is no solid mass, hydronephrosis, nephrolithiasis, hydroureter or urete rolithiasis. AORTA AND VESSELS: No aneurysm of the abdominal aorta. The abdominopelvic vasculature is patent. RETROPERITONEUM: No retroperitoneal adenopathy, hemorrhage or mass. BOWEL AND PERITONEAL CAVITY: No bowel obstruction, bowel wall thickening or pericolonic/ perienteric inflammation. No mesenteric adenopathy, free intraperitoneal fluid or mesenteric/ omental inflammati on. APPENDIX: Normal. PELVIS: No abnormality. ABDOMINAL WALL: No mass or hernia. BONES: The sclerotic lesion within the right posterolateral aspect of the L1 vertebral body (image 33 of series 605) is unchanged. There is no acute fracture. OTHER: No other finding. IMPRESSION: 1. Stable hepatic metastases. 2. Stable sclerotic lesion within the right posterolateral aspect of the L1 vertebral body (image 33 of series 605). TECHNICAL DOCUMENTATION: JOB ID: [id number] Quality ID # 436: Final reports with documentation of one or more dose reduction techniques (e.g., Au tomated exposure control, adjustment of the mA and/or kV according to patient size, use of iterative reconstruction technique) 2010 [employer]- All Rights Reserved Reading location - IP/workstation name: [email or web address]
--- NOTE | 2019-10-04 10:28 | RADIOLOGY REPORT (SQ) ---
EXAM DESCRIPTION: CT CHEST WITH IMAGES COMPLETED DATE/TIME: 10/04/2019 9:25 am REASON FOR STUDY: (C20)MALIGNANT NEOPLASM OF RECTUM C20 MALIGNANT NEOPLASM OF RECTUM COMPARISON: CT of the chest with contrast from 06/27/2019. TECHNIQUE: CT scan of the chest performed using helical scanning technique with dynamic intravenous contrast injection. Images reviewed with lung, soft tissue and bone windows. Reconstructed coronal and sagittal MPR and MIP images reviewed. All images stored on PACS. All CT scanners at this facility use dose modulation, iterative reconstruction, and/or weight based d osing when appropriate to reduce radiation dose to as low as reasonably achievable (ALARA). [facility]: Dose Right [facility]: CareDose [facility]: Dose Right [facility]: Teradose 4D [facility]: [employer] CONTRAST TYPE AND DOSE: 73 mL Omnipaque 350- low osmolar. RENAL FUNCTION: GFR > 60. LIMITATIONS: None. FINDINGS: LUNGS AND PLEURA: The trachea and main bronchi are patent. There is mild unchanged bronch ial wall thickening and there is debris within a right lower lobe segmental bronchus (image 101 of se jonh 6). There is no bronchiectasis. The cystic spaces scattered throughout both lungs are unchange d. There is no acute consolidation, sizeable pleural effusion or pneumothorax. LUNG NODULES: There is a new solid 4 mm nodule around a cystic space in the superior segment of the left lower lobe (image 62 of series 6). The 6 mm nodule around a cystic space in the lingula that ab uts the interlobar fissure is denser than on the prior CT (image 106 of series 6). The ill-defined n odule in the anterior aspect of the left lower lobe (image 112 of series 6), the solid 6 mm nodule in the lateral basilar segment of the left lower lobe (image 129 of series 6), the solid 3 mm nodule in the apical segment of the left upper lobe (image 22 of series 6), the ill-defined nodule in the righ t upper lobe (image 46 of series 6), and the solid 10 mm nodule in the right upper lobe (image 72 of series 6) are unchanged. HILAR AND MEDIASTINAL STRUCTURES: No adenopathy or mass. HEART AND VASCULAR STRUCTURES: No aneurysm or dissection of the thoracic aorta. No cardiomegaly or p ericardial effusion. HARDWARE: The tip of the left subclavian vein approach single-lumen port terminates within the SVC. UPPER ABDOMEN: Refer to the separate report of the CT of the abdomen. THYROID AND OTHER SOFT TISSUES: No mass or adenopathy. BONES: No fracture osseous lesion. OTHER: No other finding. IMPRESSION: 1. New solid 4 mm nodule around a cystic space in the superior segment of the left lower lobe (image 62 of series 6). 2. The 6 mm nodule around a cystic space in the lingula that abuts the interlobar fissure is denser than on the prior CT (image 106 of series 6). The ill-defined nodule in the anterior aspect of the le ft lower lobe (image 112 of series 6), the solid 6 mm nodule in the lateral basilar segment of the le ft lower lobe (image 129 of series 6), the solid 3 mm nodule in the apical segment of the left upper lobe (image 22 of series 6), the ill-defined nodule in the right upper lobe (image 46 of series 6), a nd the solid 10 mm nodule in the right upper lobe (image 72 of series 6) are unchanged. TECHNICAL DOCUMENTATION: JOB ID: [id number] Quality ID # 436: Final reports with documentation of one or more dose reduction techniques (e.g., Au tomated exposure control, adjustment of the mA and/or kV according to patient size, use of iterative reconstruction technique) 2010 [employer]- All Rights Reserved Reading location - IP/workstation name: [email or web address]
== END ==
LOC: RAD 08:52
PROVIDERS: ATTEND Nurse Practitioner Family
DX: C20 Malignant neoplasm of rectum (principal); C78.7 Secondary malignant neoplasm of liver and intrahepatic bile duct; R91.8 Other nonspecific abnormal finding of lung field
CPT/HCPCS: 71260; 74177

== ENCOUNTER 2019-10-08 11:04 | Outpatient (CLI) | payer SELFPAY ==
[~2019-10-08 11:04] MED LIST changes: +BEVACIZUMAB IV PRN; -CEFAZOLIN 1 GM/D5W RTU 1 GM/50 ML RTUPB IV PRN; +NORMAL SALINE 250 ML IV PRN; +NORMAL SALINE IV PRN
[2019-10-08 11:12] VITALS: BP 133/84
== END 2019-10-08 12:11 | disposition home or self-care (01) ==
LOC: II 11:04 → 5TH 11:07 → II 12:11
PROVIDERS: ATTEND Internal Medicine Hematology & Oncology
DX: Z51.11 Encounter for antineoplastic chemotherapy (principal); C20 Malignant neoplasm of rectum
CPT/HCPCS: 96413; J7050; J9035; J1642

== ENCOUNTER 2019-10-22 11:26 | Outpatient (CLI) | payer SELFPAY ==
[2019-10-22 11:59] VITALS: BP 121/82
== END 2019-10-22 12:35 | disposition home or self-care (01) ==
LOC: II 11:26 → 5TH 11:30 → II 12:35
PROVIDERS: ATTEND Internal Medicine Hematology & Oncology
DX: Z51.11 Encounter for antineoplastic chemotherapy (principal); C20 Malignant neoplasm of rectum
CPT/HCPCS: 96413; J7050; J9035; J1642

== ENCOUNTER 2019-11-12 10:25 | Outpatient (CLI) | payer SELFPAY ==
[2019-11-12 10:42] VITALS: BP 128/85
== END 2019-11-12 11:41 | disposition home or self-care (01) ==
LOC: II 10:25 → 5TH 10:27 → II 11:41
PROVIDERS: ATTEND Internal Medicine
DX: Z51.11 Encounter for antineoplastic chemotherapy (principal); C20 Malignant neoplasm of rectum
CPT/HCPCS: 96413; J7050; J9035; J1642

== ENCOUNTER 2019-11-26 10:36 | Outpatient (CLI) | payer SELFPAY ==
[2019-11-26 10:43] VITALS: BP 115/84
== END 2019-11-26 12:15 | disposition home or self-care (01) ==
LOC: II 10:36 → 5TH 10:37 → II 12:15
PROVIDERS: ATTEND Internal Medicine
DX: Z51.11 Encounter for antineoplastic chemotherapy (principal); C20 Malignant neoplasm of rectum
CPT/HCPCS: 96413; J7050; J9035; J1642

== ENCOUNTER 2019-12-10 11:38 | Outpatient (CLI) | payer SELFPAY ==
[2019-12-10 12:41] VITALS: BP 132/81
== END 2019-12-10 13:30 | disposition home or self-care (01) ==
LOC: II 11:38 → 5TH 11:41 → II 13:30
PROVIDERS: ATTEND Internal Medicine
DX: Z51.11 Encounter for antineoplastic chemotherapy (principal); C20 Malignant neoplasm of rectum
CPT/HCPCS: 96413; J7050; J9035; J1642

== ENCOUNTER 2019-12-24 10:26 | Outpatient (CLI) | payer SELFPAY ==
[2019-12-24 10:35] VITALS: BP 131/83
== END 2019-12-24 12:00 | disposition home or self-care (01) ==
LOC: II 10:26 → 5TH 10:27 → II 12:00
PROVIDERS: ATTEND Internal Medicine
DX: Z51.11 Encounter for antineoplastic chemotherapy (principal); C20 Malignant neoplasm of rectum
CPT/HCPCS: 96413; J7050; J9035; J1642

== ENCOUNTER → 2019-12-26 | Outpatient (CLI) | payer SELFPAY ==
--- NOTE | 2019-12-26 12:47 | RADIOLOGY REPORT (SQ) ---
EXAM DESCRIPTION: CT CHEST WITH IMAGES COMPLETED DATE/TIME: 12/26/2019 9:35 am REASON FOR STUDY: C20 MALIGNANT NEOPLASM OF RECTUM C20 MALIGNANT NEOPLASM OF RECTUM COMPARISON: 10/04/2019 TECHNIQUE: CT scan of the chest performed using helical scanning technique with dynamic intravenous contrast injection. Images reviewed with lung, soft tissue and bone windows. Reconstructed coronal and sagittal MPR and MIP images reviewed. All images stored on PACS. All CT scanners at this facility use dose modulation, iterative reconstruction, and/or weight based d osing when appropriate to reduce radiation dose to as low as reasonably achievable (ALARA). [facility]: Dose Right [facility]: CareDose [facility]: Dose Right [facility]: Teradose 4D [facility]: [employer] RENAL FUNCTION: GFR > 60. RADIATION DOSE: CT Rad equipment meets quality standard of care and radiation dose reduction techniq ues were employed. CTDIvol: 4.5 - 4.6 mGy. DLP: 690 mGy-cm. . LIMITATIONS: None. FINDINGS: LUNGS AND PLEURA: On image 19, there is a new 3 mm ground-glass nodule in the right apex. On image 41, stable 5 mm part solid nodule right upper lobe. Image 60, 7 mm left lower lobe nodule previously measuring 4 mm. Image 107, perifissural nodule in the left upper lobe measures 8.5 x 10 mm, previously 5 x 7 mm. Image 130, stable left lower lobe nodule measuring just over 5 mm. HILAR AND MEDIASTINAL STRUCTURES: No identified masses or abnormal nodes. HEART AND VASCULAR STRUCTURES: No aneurysm or dissection. No central pulmonary emboli. No pericardi al effusion. HARDWARE: None in the chest. UPPER ABDOMEN: See separate report of the CT of the abdomen. THYROID AND OTHER SOFT TISSUES: No masses. No adenopathy. BONES: No significant finding. OTHER: Left-sided port tip in the SVC. IMPRESSION: Slight increase in size of pulmonary nodules. TECHNICAL DOCUMENTATION: JOB ID: [id number] Quality ID # 436: Final reports with documentation of one or more dose reduction techniques (e.g., Au tomated exposure control, adjustment of the mA and/or kV according to patient size, use of iterative reconstruction technique) 2010 [employer]- All Rights Reserved Reading location - IP/workstation name: [email or web address]
--- NOTE | 2019-12-26 13:03 | RADIOLOGY REPORT (SQ) ---
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 No oral contrast. Images reviewed with lung, soft tissue, and bone windows. Reconstructed coronal and sagittal MPR images reviewed. Delayed images for evaluation of the urinary system also acquired. All images stored on PACS. All CT scanners at this facility use dose modulation, iterative reconstruction, and/or weight based d osing when appropriate to reduce radiation dose to as low as reasonably achievable (ALARA). [facility]: Dose Right [facility]: CareDose [facility]: Dose Right [facility]: Teradose 4D [facility]: [employer] CONTRAST TYPE AND DOSE: contrast/concentration: Isovue 350.00 mmol/ml; Total Contrast Delivered: 73. 0 ml; Total Saline Delivered: 66.0 ml RENAL FUNCTION: GFR > 60. RADIATION DOSE: . LIMITATIONS: None. FINDINGS: LOWER CHEST: See separate report of the CT of the chest. LIVER: Previously described liver lesions are stable. There is a 10 mm lesion in segment 6 on image 28 of series 4 that measured about 5 mm on the prior by my measurement. SPLEEN: Normal size. No focal lesions. PANCREAS: No masses. No significant calcifications. No adjacent inflammation or peripancreatic fluid collections. Pancreatic duct not dilated. GALLBLADDER: No identified stones by CT criteria. No inflammatory changes to suggest cholecystitis. ADRENAL GLANDS: No significant masses or asymmetry. RIGHT KIDNEY AND URETER: No solid masses. No significant calcifications. No hydronephrosis or hyd roureter. LEFT KIDNEY AND URETER: No solid masses. No significant calcifications. No hydronephrosis or hydr oureter. AORTA AND VESSELS: No aneurysm. No dissection. Renal arteries, SMA, celiac without stenosis. RETROPERITONEUM: No retroperitoneal adenopathy, hemorrhage or masses. BOWEL AND PERITONEAL CAVITY: No masses or inflammatory changes. No free fluid or peritoneal masses. APPENDIX: Not visualized. PELVIS: No mass. No free fluid. Normal bladder. ABDOMINAL WALL: No masses. No hernias. BONES: Subtle sclerotic lesion posterior L1 vertebral body to right of midline series 4, image 28 unc hanged. OTHER: No other significant finding. IMPRESSION: Mostly stable hepatic metastasis. 1 of the smaller lesions is slightly larger. TECHNICAL DOCUMENTATION: JOB ID: [id number] Quality ID # 436: Final reports with documentation of one or more dose reduction techniques (e.g., Au tomated exposure control, adjustment of the mA and/or kV according to patient size, use of iterative reconstruction technique) 2010 [employer]- All Rights Reserved Reading location - IP/workstation name: [email or web address]
== END ==
LOC: RAD 08:18
PROVIDERS: ATTEND Internal Medicine
DX: C20 Malignant neoplasm of rectum (principal)
CPT/HCPCS: 71260; 74177

== ENCOUNTER 2020-01-07 11:00 | Outpatient (CLI) | payer OTHER ==
[2020-01-07 11:17] VITALS: BP 133/90
== END 2020-01-07 12:21 | disposition home or self-care (01) ==
LOC: II 11:00 → 5TH 11:03 → II 12:21
PROVIDERS: ATTEND Internal Medicine
DX: Z51.11 Encounter for antineoplastic chemotherapy (principal); C20 Malignant neoplasm of rectum
CPT/HCPCS: 96413; J7050; J9035; J1642

== ENCOUNTER 2020-01-28 11:20 | Outpatient (CLI) | payer OTHER ==
[~2020-01-28 11:20] MED LIST changes: -BEVACIZUMAB IV PRN; -NORMAL SALINE IV PRN
[2020-01-28] MEDS ORDERED: BEVACIZUMAB IV PRN (11:48)
[2020-01-28] MEDS ORDERED: NORMAL SALINE IV PRN (11:48)
[2020-01-28 12:33] VITALS: BP 132/80
== END 2020-01-28 13:15 | disposition home or self-care (01) ==
LOC: II 11:20 → 5TH 11:21 → II 13:15
PROVIDERS: ATTEND Internal Medicine
DX: Z51.11 Encounter for antineoplastic chemotherapy (principal); C20 Malignant neoplasm of rectum
CPT/HCPCS: 96413; J7050; J9035; J1642

== ENCOUNTER 2020-02-11 11:09 | Outpatient (CLI) | payer OTHER ==
[~2020-02-11 11:09] MED LIST changes: +BEVACIZUMAB IV PRN; +NORMAL SALINE 250 ML @ KVO IV PRN; -NORMAL SALINE 250 ML IV PRN; +NORMAL SALINE IV PRN
[2020-02-11 11:41] VITALS: BP 128/85
== END 2020-02-11 12:45 | disposition home or self-care (01) ==
LOC: II 11:09 → 5TH 11:14 → II 12:45
PROVIDERS: ATTEND Internal Medicine
DX: Z51.11 Encounter for antineoplastic chemotherapy (principal); C20 Malignant neoplasm of rectum
CPT/HCPCS: 96413; J7050; J9035; J1642

== ENCOUNTER 2020-02-25 10:40 | Outpatient (CLI) | payer OTHER ==
[~2020-02-25 10:40] MED LIST changes: -NORMAL SALINE 250 ML @ KVO IV PRN; +NORMAL SALINE 250 ML IV PRN
[2020-02-25 11:03] VITALS: BP 122/79
== END 2020-02-25 12:15 | disposition home or self-care (01) ==
LOC: II 10:40 → 5TH 10:46 → II 12:15
PROVIDERS: ATTEND Internal Medicine
DX: Z51.11 Encounter for antineoplastic chemotherapy (principal); C20 Malignant neoplasm of rectum
CPT/HCPCS: 96413; J7050; J9035; J1642

== ENCOUNTER 2020-03-10 10:59 | Outpatient (CLI) | payer BC, OTHER ==
[~2020-03-10 10:59] MED LIST changes: +NORMAL SALINE 250 ML @ KVO IV PRN; -NORMAL SALINE 250 ML IV PRN
[2020-03-10 11:48] VITALS: BP 122/87
[2020-03-10 13:42] LABS: ALBUMIN 4.6 g/dL (3.5-5.0); ALKALINE PHOSPHATASE 108 U/L (38-126); ANION GAP 10 (5-19); ASPARTATE AMINO TRANSFERASE 34 U/L (17-59); BILIRUBIN,DIRECT 0.2 mg/dL (0.0-0.4); BILIRUBIN,TOTAL 0.5 mg/dL (0.2-1.3); BLOOD UREA NITROGEN 13 mg/dL (7-20); CARBON DIOXIDE 31 mmol/L (22-30); CHLORIDE 98 mmol/L (98-107); GLUCOSE 95 mg/dL (75-110); POTASSIUM 4.2 mmol/L (3.6-5.0); TOTAL PROTEIN 7.6 g/dL (6.3-8.2)
== END 2020-03-10 12:30 | disposition home or self-care (01) ==
LOC: II 10:59 → 5TH 11:50 → II 12:30
PROVIDERS: ATTEND Internal Medicine
DX: Z51.11 Encounter for antineoplastic chemotherapy (principal); C20 Malignant neoplasm of rectum
CPT/HCPCS: 36415; 82378; 80053; 96413; J7050; J9035; J1642

== ENCOUNTER → 2020-03-20 | Outpatient (CLI) | payer OTHER ==
--- NOTE | 2020-03-20 09:57 | RADIOLOGY REPORT (SQ) ---
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 0 ml; Total Saline Delivered: 67.0 ml RENAL FUNCTION: None required. The patient is less than 50 years old. COMPARISON: CT of the chest with contrast from 12/26/2019 P TECHNIQUE: CT scan of the chest performed using helical scanning technique with dynamic intravenous contrast injection. Images reviewed with lung, soft tissue and bone windows. Reconstructed coronal a nd sagittal MPR images reviewed. All images stored on PACS. All CT scanners at this facility use dose modulation, iterative reconstruction, and/or weight based d osing when appropriate to reduce radiation dose to as low as reasonably achievable (ALARA). [facility]: Dose Right [facility]: CareDose [facility]: Dose Right [facility]: Teradose 4D [facility]: [email or web address] RADIATION DOSE: CT Rad equipment meets quality standard of care and radiation dose reduction techniq ues were employed. CTDIvol: 4.5 - 4.6 mGy. DLP: 729 mGy-cm.. LIMITATIONS: None. FINDINGS: AXILLAE: No adenopathy. CHEST WALL: No mass or hematoma. LUNGS AND PLEURA: The trachea and main bronchi are patent. There is mild upper lobe predominant para septal and centrilobular emphysema. The left apical pleuroparenchymal thickening is unchanged. Ther e is mild bronchial wall thickening without associated bronchiectasis. There is no acute consolidati on, ground-glass opacification, pleural effusion or pneumothorax. PULMONARY NODULES: The solid 4 mm nodule in the apical segment of the right upper lobe (image 17 of series 6) is unchanged. The solid 3 mm nodule in the anterior segment of the right upper lobe (image 68 of series 6) has increased in size as has the 3 mm subpleural nodule in the right lower lobe (meghan ge 94 of series 6). The nodule in the lingula that abuts the interlobar fissure (image 108 of series 6) has also increased in size and it measures 13 x 10 mm compared to 10 x 9 mm on the prior CT. The re are several nodules adjacent to cystic spaces in both lungs and have increased in size; these incl ude the nodule in the right upper lobe on image 43 of series 6, the 11 mm nodule in the superior segm ent of the left lower lobe (image 61 of series 6), the 6 mm nodule in the anterior segment of the rig ht upper lobe (image 63 of series 6), the 6 mm nodule in the right lower lobe (image 75 of series 6), and the 6 mm nodule in the right middle lobe (image 89 of series 6). THYROID: No mass or asymmetry. HILAR AND MEDIASTINAL STRUCTURES: No adenopathy or mass. AORTA AND GREAT VESSELS: No aneurysm or dissection PULMONARY ARTERIES: No filling defects within the main pulmonary artery. HEART: No cardiomegaly or pericardial effusion. HARDWARE AND LIFELINES: None. BONES: No fracture or osseous lesion. OTHER: No other findings. IMPRESSION: Increased size of bilateral pulmonary nodules as detailed above. COMPARISON: CT of the abdomen and pelvis from 12/26/2019 RADIATION DOSE: CT Rad equipment meets quality standard of care and radiation dose reduction techniq ues were employed. CTDIvol: 4.5 - 4.6 mGy. DLP: 729 mGy-cm. TECHNIQUE: CT scan of the abdomen and pelvis performed with intravenous and oral contrast using lolis alex scanning technique with dynamic intravenous contrast injection. Images reviewed with lung, soft tissue and bone windows. Reconstructed coronal and sagittal MPR images reviewed. Delayed images for evaluation of the urinary system also acquired and evaluated. All images stored on PACS. All CT scanners at this facility use dose modulation, iterative reconstruction, and/or weight based d osing when appropriate to reduce radiation dose to as low as reasonably achievable (ALARA). [facility]: Dose Right [facility]: [employer] [facility]: Dose Right [facility]: Teradose 4D [facility]: [employer] FINDINGS: LIVER: The morphology of the liver is the liver is noncirrhotic. There are numerous hypod ense lesions scattered throughout both hepatic lobes; the number of lesions is unchanged, however sev eral of the lesions have increased in size; for reference the 4.3 x 2.6 cm lesion in the posteroinfer ior aspect of the right hepatic lobe (image 34 of series 3) measured 3.6 x 2.1 cm on the prior CT and the 3.7 x 2.4 cm lesion at the junction of segments II and III (image 22 of series 3) measured 3.2 x 2.2 cm on the prior CT. The portal veins are patent. SPLEEN: No splenomegaly or splenic mass. PANCREAS: No acute gross abnormality of the pancreas. GALLBLADDER: No acute gross abnormality of the gallbladder. ADRENAL GLANDS: No mass or asymmetry. RIGHT KIDNEY AND URETER: No solid mass, hydronephrosis, nephrolithiasis, hydroureter or ureterolithia sis. LEFT KIDNEY AND URETER: No solid mass, hydronephrosis, nephrolithiasis, hydroureter or ureterolithias is AORTA AND VESSELS: No aneurysm or dissection of the abdominal aorta. RETROPERITONEUM: No retroperitoneal adenopathy, hemorrhage or mass. LARGE AND SMALL BOWEL: Persistent and unchanged short segment of asymmetric wall thickening involving the rectum. There is no bowel obstruction or pericolonic/perienteric inflammation. APPENDIX: Normal. ABDOMINAL WALL: No mass or hernia. PERITONEAL CAVITY: No mesenteric adenopathy, free intraperitoneal fluid or mesenteric/ omental inflam mation. PELVIS: Unchanged mild soft tissue thickening in the presacral space. BONES: Chronic bilateral pars interarticularis defects at L5, stable sclerotic lesion within the post erior aspect of the L1 vertebral body and unchanged sclerosis of inferior sacrum. OTHER: No other findings. IMPRESSION: 1. The number of hypodense hepatic lesions is unchanged, however several of the lesions have increased in size; for reference the 4.3 x 2.6 cm lesion in the posteroinferior aspect of the r ight hepatic lobe (image 34 of series 3) measured 3.6 x 2.1 cm on the prior CT and the 3.7 x 2.4 cm l esion at the junction of segments II and III (image 22 of series 3) measured 3.2 x 2.2 cm on the prio r CT. 2. Persistent and unchanged short segment of asymmetric wall thickening involving the rectum. 3. Unchanged mild soft tissue thickening in the presacral space, sclerotic lesion within the posteri or aspect of the L1 vertebral body and sclerosis of the inferior sacrum. TECHNICAL DOCUMENTATION: JOB ID: [id number] Quality ID # 436: Final reports with documentation of one or more dose reduction techniques (e.g., Au tomated exposure control, adjustment of the mA and/or kV according to patient size, use of iterative reconstruction technique) 2010 [employer]- All Rights Reserved Reading location - IP/workstation name: [email or web address]
== END ==
LOC: RAD 08:26
PROVIDERS: ATTEND Physician Assistant Medical
DX: C20 Malignant neoplasm of rectum (principal); R91.8 Other nonspecific abnormal finding of lung field; K76.9 Liver disease, unspecified
CPT/HCPCS: 71260; 74177

== ENCOUNTER 2020-05-08 08:23 | Outpatient (CLI) | payer OTHER ==
[~2020-05-08 08:23] MED LIST changes: +ATROPINE SULFATE INJ 0.4 MG/1 ML VIAL IV PRN; -BEVACIZUMAB IV PRN; +CETUXIMAB IV PRN; +CONTAINER EMPTY IV PRN; +DEXAMETH 10 MG/ONDANSETRON 16 MG in NS 50 ML IV PRN; +DEXTROSE 5% IV PRN; +DIPHENHYDRAMINE 50 MG/ML VIAL IV PRN; +IRINOTECAN HCL IV PRN; -NORMAL SALINE IV PRN; +WATER IV PRN
[2020-05-08] MEDS: FAMOTIDINE 20 MG in NS 50 ML IV PRN ×2 (09:23→09:26)
[2020-05-08 11:01] VITALS: BP 125/81
[2020-05-08] MEDS ORDERED: DEXAMETHASONE SOD PHOSPHATE INJ 4 MG/1 ML VIAL ONE (11:15)
[2020-05-08] MEDS ORDERED: DIPHENHYDRAMINE HCL 50 MG/ML VIAL ONE (11:15)
[2020-05-08] MEDS ORDERED: DIPHENHYDRAMINE HCL 50 MG/ML VIAL IV ONE (11:30)
[2020-05-08] MEDS ORDERED: DEXAMETHASONE SOD PHOS INJ 10 MG/1 ML VIAL IV ONE (11:30)
== END 2020-05-08 11:20 | disposition home or self-care (01) ==
LOC: II 08:23 → 5TH 08:57 → II 11:20
PROVIDERS: ATTEND Internal Medicine
DX: Z51.11 Encounter for antineoplastic chemotherapy (principal); C20 Malignant neoplasm of rectum
CPT/HCPCS: 96413; 96367; 96375; J0461; J1100 ×2; J1200; J3490; J2405; S0028; J9055; J1642; J7060; J9206

== ENCOUNTER 2020-05-08 11:25 | Emergency (ER) | payer OTHER ==
[2020-05-08] MEDS ORDERED: ALBUTEROL SULFATE 0.083% NEB 2.5 MG/3 ML AMPUL NEB ONE (11:32)
[2020-05-08] MEDS ORDERED: EPINEPHRINE INJ/PF 1 MG/1 ML AMPULE IM ONE (11:39)
--- NOTE | 2020-05-08 11:40 | ER Document Report ---
ED Medical Screen (RME) - General Stated Complaint: POSSIBLE ALLERGIC REACTION Time Seen by Provider: 05/08/20 11:31 Primary Care Provider: CAYLA MITCHELL MD [Primary Care Provider] - Follow up as needed Notes: Patient presents after having an allergic reaction after his chemotherapy was initiated. Patient was receiving cetuximub for the first time. Patient did receive Benadryl 75 mg as well as Decadron 10 mg and Pepcid 20 mg prior to his arrival here. Patient with urticarial lesions. Patient initially had tachycardia and hypertension although this is improved at this time. Charge nurse states that patient's oncologist called stating that he will likely need epinephrine with this medication. Patient without any chest discomfort and no oral airway swelling. Patient's baseline is to have shortness of breath due to his metastatic cancer involving the lung liver and colon. I have greeted and performed a rapid initial assessment of this patient. A comprehensive ED assessment and evaluation of the patient, analysis of test results and completion of the medical decision making process will be conducted by additional ED providers. TRAVEL OUTSIDE OF THE [place] IN LAST 30 DAYS: No - Related Data Allergies/Adverse Reactions: almond Allergy (Verified 12/14/18 13:20) cashew nut Allergy (Verified 12/14/18 13:20) Past Medical History - Past Medical History Cardiac Medical History: Denies: Hx Coronary Artery Disease, Hx Heart Attack, Hx Hypertension Pulmonary Medical History: Reports: Hx Asthma Denies: Hx Bronchitis, Hx COPD, Hx Pneumonia Neurological Medical History: Denies: Hx Cerebrovascular Accident, Hx Seizures Renal/ Medical History: Denies: Hx Peritoneal Dialysis Musculoskeltal Medical History: Reports Hx Arthritis - Immunizations Hx Diphtheria, Pertussis, Tetanus Vaccination: Yes Physical Exam - Vital signs Vitals: Temp Pulse Resp BP Pulse Ox 98.7 F 93 19 134/90 H 96 05/08/20 11:35 05/08/20 11:35 05/08/20 11:35 05/08/20 11:35 05/08/20 11:35 - General General appearance: Alert Notes: No angioedema - Respiratory Respiratory status: No respiratory distress - Cardiovascular Rhythm: Regular. No: Tachycardia Heart sounds: S1 appreciated, S2 appreciated Course - Vital Signs Vital signs: Temp Pulse Resp BP Pulse Ox 98.7 F 93 19 134/90 H 96 05/08/20 11:35 05/08/20 11:35 05/08/20 11:35 05/08/20 11:35 05/08/20 11:35 Doctor's Discharge - Discharge Referrals: CAYLA MITCHELL MD [Primary Care Provider] - Follow up as needed
--- NOTE | 2020-05-08 13:11 | ER Document Report ---
ED Allergic Reaction - General Chief Complaint: Allergic Reaction Stated Complaint: POSSIBLE ALLERGIC REACTION Time Seen by Provider: 05/08/20 11:31 Primary Care Provider: CAYLA MITCHELL MD [Primary Care Provider] - Follow up as needed Notes: CHIEF COMPLAINT: Allergic reaction HPI: 49-year-old male brought from the outpatient oncology area for an allergic reaction to Erbitux. They just apparently started the infusion when patient developed generalized urticaria and some shortness of breath. They gave the patient Benadryl, Pepcid, Decadron over there and brought the patient to the ER to be observed. Patient currently is asymptomatic. ROS: See HPI - all other systems were reviewed and are otherwise negative Constitutional: no fever Eyes: no drainage, no blurred vision ENT: no runny nose, no sore throat Cardiovascular: no chest pain Resp: + SOB, no cough GI: no vomiting, no diarrhea, no abdominal pain : no dysuria Integumentary: no rash Allergy: + hives Musculoskeletal: no extremity pain or swelling Neurological: no numbness/tingling, no weakness MEDICATIONS: I agree with the patient medications as charted by the RN. ALLERGIES: I agree with the allergies as charted by the RN. PAST MEDICAL HISTORY/PAST SURGICAL HISTORY: Reviewed and agree as charted by RN. SOCIAL HISTORY: Reviewed and agree as charted by RN. FAMILY HISTORY: No significant familial comorbid conditions directly related to patient complaint EXAM: Reviewed vital signs as charted by RN. CONSTITUTIONAL: Alert and oriented and responds appropriately to questions. Well-appearing; well-nourished HEAD: Normocephalic; atraumatic EYES: PERRL; Conjunctivae clear, sclerae non-icteric ENT: normal nose; no rhinorrhea; moist mucous membranes; pharynx without lesions noted, no uvula edema or deviation, no tonsillar hypertrophy, phonation normal. No angioedema NECK: Supple without meningismus; non-tender; no cervical lymphadenopathy, no masses. No stridor CARD: RRR; no murmurs, no clicks, no rubs, no gallops; symmetric distal pulses RESP: Normal chest excursion without splinting or tachypnea; breath sounds clear and equal bilaterally; no wheezes, no rhonchi, no rales, pulse oximetry 98% on room air not hypoxic ABD/GI: Normal bowel sounds; non-distended; soft, non-tender, no rebound, no guarding; no palpable organomegaly or masses. BACK: The back appears normal and is non-tender to palpation, there is no CVA tenderness EXT: Normal ROM in all joints; non-tender to palpation; no cyanosis, no effusions, no edema SKIN: Normal color for age and race; warm; dry; good turgor; no acute lesions noted NEURO: Moves all extremities equally; Motor and sensory function intact PSYCH: The patient's mood and manner are appropriate. Grooming and personal hygiene are appropriate. MDM: 49-year-old male allergic reaction from a chemotherapeutic drug. Patient is asymptomatic at this time after receiving steroids antihistamines and epinephrine. Will observe patient for 2 hours. I did speak with Dr. Mitchell, oncology. case discussed with Dr. Hein, attending. TRAVEL OUTSIDE OF THE [place] IN LAST 30 DAYS: No - Related Data Allergies/Adverse Reactions: almond Allergy (Verified 12/14/18 13:20) cashew nut Allergy (Verified 12/14/18 13:20) Past Medical History - Social History Smoking Status: Former Smoker Family History: Reviewed & Not Pertinent - Past Medical History Cardiac Medical History: Denies: Hx Coronary Artery Disease, Hx Heart Attack, Hx Hypertension Pulmonary Medical History: Reports: Hx Asthma Denies: Hx Bronchitis, Hx COPD, Hx Pneumonia Neurological Medical History: Denies: Hx Cerebrovascular Accident, Hx Seizures Renal/ Medical History: Denies: Hx Peritoneal Dialysis Musculoskeletal Medical History: Reports Hx Arthritis - Immunizations Hx Diphtheria, Pertussis, Tetanus Vaccination: Yes Physical Exam - Vital signs Vitals: Temp Pulse Resp BP Pulse Ox 98.7 F 93 19 134/90 H 96 05/08/20 11:35 05/08/20 11:35 05/08/20 11:35 05/08/20 11:35 05/08/20 11:35 Course - Re-evaluation Re-evalutation: 05/08/20 14:00 Patient continues to be symptom-free at this time. We will keep him on steroids and antihistamines for the next several days. He will follow up with his hematology team for further management return for any concerns - Vital Signs Vital signs: Temp Pulse Resp BP Pulse Ox 98.1 F 93 17 136/90 H 98 05/08/20 12:15 05/08/20 11:35 05/08/20 12:15 05/08/20 12:15 05/08/20 12:25 - Laboratory Results Critical Laboratory Results Reviewed: No Critical Results - Radiology Results Critical Radiology Results Reviewed: No Critical Results Discharge - Discharge Clinical Impression: Allergic reaction to drug Qualifiers: Encounter type: initial encounter Qualified Code(s): T78.40XA - Allergy, unspecified, initial encounter Condition: Stable Disposition: HOME, SELF-CARE Instructions: Acute Allergic Reaction ([facility]) Additional Instructions: History 1. take the medications as prescribed 2. take Benadryl 25-50 mg three times daily for 3-4 days 3. follow up recheck with PCP for further evaluation and treatment, call for appt. 4. return for any shortness of breath or worsening rash or condition Prescriptions: Prednisone [Deltasone 20 mg Tablet] 2 tab PO DAILY 5 Days #10 tablet Famotidine [Pepcid 20 mg Tablet] 20 mg PO BID #12 tablet Referrals: CAYLA MITCHELL MD [Primary Care Provider] - Follow up as needed
[2020-05-08 14:18] VITALS: BP 136/94
== END 2020-05-08 14:18 | disposition home or self-care (01) ==
LOC: ER 11:25
DX: L50.0 Allergic urticaria (principal); T45.1X5A Adverse effect of antineoplastic and immunosuppressive drugs, initial encounter; Y92.538 Other ambulatory health services establishments as the place of occurrence of the external cause; C78.00 Secondary malignant neoplasm of unspecified lung; C78.7 Secondary malignant neoplasm of liver and intrahepatic bile duct; C78.5 Secondary malignant neoplasm of large intestine and rectum; J45.909 Unspecified asthma, uncomplicated; R06.02 Shortness of breath; Z87.891 Personal history of nicotine dependence; Z91.018 Allergy to other foods
CPT/HCPCS: 94640; 99284; 96372; J0171; J7613